=== PATIENT | female | born 2000 ===

== ENCOUNTER 2021-06-23 13:10 | Outpatient (CLI) | payer OTHER | END 2021-06-23 14:25 | disposition home or self-care (01) | LOC: PRENATAL 13:10 | PROVIDERS: ATTEND Obstetrics & Gynecology Maternal & Fetal Medicine | DX: O35.0XX1 Maternal care for (suspected) central nervous system malformation in fetus, fetus 1 (principal); O35.3XX1 Maternal care for (suspected) damage to fetus from viral disease in mother, fetus 1; O98.512 Other viral diseases complicating pregnancy, second trimester; Z36.89 Encounter for other specified antenatal screening; Z3A.22 22 weeks gestation of pregnancy ==

== ENCOUNTER 2021-08-04 08:59 | Outpatient (CLI) | payer OTHER | END 2021-08-04 10:38 | disposition home or self-care (01) | LOC: PRENATAL 08:59 | PROVIDERS: ATTEND Obstetrics & Gynecology Maternal & Fetal Medicine | DX: O26.849 Uterine size-date discrepancy, unspecified trimester (principal); O35.0XX0 Maternal care for (suspected) central nervous system malformation in fetus, not applicable or unspecified ==

== ENCOUNTER 2021-08-30 12:29 | Inpatient (IN) | payer OTHER ==
[~2021-08-30] VITALS: Ht 154.9 cm; Wt 49.9 kg
[2021-08-30] MEDS ORDERED: PRENATAL CAPLE1 EAC1 PO (14:46)
== END 2021-09-02 11:36 | disposition home or self-care (01) | DRG 833 ==
LOC: LDR 12:29 → OB/GYN 08-31 20:10
PROVIDERS: ADMIT Obstetrics & Gynecology; ATTEND Obstetrics & Gynecology
PROC: 4A1HXCZ Monitoring of Products of Conception, Cardiac Rate, External Approach (ICD-10-PCS; principal; 2021-08-30)
PROC: BY4FZZZ Ultrasonography of Third Trimester, Single Fetus (ICD-10-PCS; 2021-08-30)
DX: O60.03 Preterm labor without delivery, third trimester (principal); O26.843 Uterine size-date discrepancy, third trimester; O35.0XX0 Maternal care for (suspected) central nervous system malformation in fetus, not applicable or unspecified; O36.8130 Decreased fetal movements, third trimester, not applicable or unspecified; Z3A.33 33 weeks gestation of pregnancy; Z20.822 Contact with and (suspected) exposure to COVID-19

== ENCOUNTER 2021-10-04 09:02 | Outpatient (CLI) | payer OTHER ==
[~2021-10-04 09:02] MED LIST: PRENATAL CAPLE1 EAC1 PO
== END 2021-10-04 10:27 | disposition home or self-care (01) ==
LOC: OBS/DEL 09:02
PROVIDERS: ATTEND Obstetrics & Gynecology
DX: O26.893 Other specified pregnancy related conditions, third trimester (principal); Z3A.38 38 weeks gestation of pregnancy

== ENCOUNTER 2024-04-22 09:46 | Inpatient (IN) | payer OTHER ==
[2024-04-22] VITALS (9 sets, daily range): BP systolic 110–126; BP diastolic 56–77
[~2024-04-22] VITALS: Ht 157.5 cm; Wt 61.2 kg
[2024-04-22] MEDS ORDERED: MISOPROSTOL 25 MCG/4 ML GEL.W.APPL VAG STA (10:16)
[2024-04-22] MEDS ORDERED: PRENATAL TABLE1 EAC1 PO (10:46)
[2024-04-22 11:04] LABS: PH,URINE 6.5 (5.0-8.0); URINE APPEARANCE Clear; URINE BILIRRUBIN Negative (NEGATIVE); URINE BLOOD Negative; URINE COLOR Yellow; URINE GLUCOSE Negative (NEGATIVE); URINE KETONE Negative (NEGATIVE); URINE LEUKOCYTE Moderate; URINE NITRATE Negative; URINE PROTEIN Trace (NEGATIVE)
[2024-04-22 11:06] LABS: URINE BACTERIA 7648.1 uL (0.0-1933); URINE EPITHELIAL CELLS 48.5 uL (0.0-38.8); URINE RBC 8.8 uL (0.0-20.8); URINE WBC 297.4 uL (0.0-23.2)
[2024-04-22 11:16] LABS: HEMATOCRIT 26.6 % (36.0-45.00); MEAN CELL VOLUME 72.5 fL (80.00-100.00); MEAN CORPUSCULAR HEMOGLOBIN 23.1 pg (27.00-32.0); MEAN CORPUSCULAR HGB CONC 31.9 g/dl (32.0-36.0); PLATELET COUNT 226 K/uL (150-450); RED BLOOD COUNT 3.67 M/uL (4.00-6.00); RED CELL DISTRIBUTION WIDTH 16.5 % (11.5-14.5)
[2024-04-22 11:18] LABS: HEMOGLOBIN 8.5 g/dL (12.0-15.00)
[2024-04-22 11:34] LABS: PARTIAL THROMBOPLASTIN TIME 23.3 SECONDS (22.0-34.0); PROTHROMBIN TIME 10.9 SECONDS (9.0-11.5)
[2024-04-22 11:43] LABS: ALBUMIN 2.7 gm/dL (3.4-5.0); BILIRUBIN TOTAL 0.5 mg/dL (0.3-1.2); CALCIUM 9.3 mg/dL (8.5-10.1); CREATININE SERUM 0.34 mg/dL (0.55-1.02); GFR 240.77; GLOBULINA 4.5 G/DL (2.4-3.5); POTASSIUM 4.73 mEq/L (3.5-5.1); TOTAL PROTEIN 7.2 gm/dL (6.4-8.2)
[2024-04-22 11:56] LABS: URINE CAST 0.45 uL (0.0-1.40)
[2024-04-22 11:58] LABS: URINE MUCUS HEAVY
[2024-04-22] MEDS ORDERED: OXYTOCIN 500 ML IV SCH (18:15)
[2024-04-22] MEDS ORDERED: MORPHINE SULFATE 4 MG/ML CARTRIDGE IV ONE (20:00)
[2024-04-22] MEDS ORDERED: IBUprofen 400 MG TABLET PO PRN (21:00)
[2024-04-22] MEDS ORDERED: OXYTOCIN 10 UNITS/ML VIAL IM STA (21:15)
[2024-04-22] MEDS ORDERED: OXYTOCIN 1,000 ML IV SCH (21:15)
[2024-04-22] MEDS ORDERED: CHLORHEXIDINE GLUCONATE 120 ML BOTTLE TOP SCH (21:15)
[2024-04-22] MEDS ORDERED: ERYTHROMYCIN BASE OPHT 1GM EACH TUBE OP ONE (22:15)
[2024-04-22] MEDS ORDERED: LIDOCAINE HCL 1% 10ML VIAL PERCUT ONE (23:30)
[2024-04-23] VITALS: BP 105/68
[2024-04-23 01:58] LABS: MEAN CELL VOLUME 73.2 fL (80.00-100.00); MEAN CORPUSCULAR HGB CONC 32.2 g/dl (32.0-36.0); PLATELET COUNT 189 K/uL (150-450); RED BLOOD COUNT 3.18 M/uL (4.00-6.00); RED CELL DISTRIBUTION WIDTH 15.5 % (11.5-14.5)
[2024-04-23 02:00] LABS: MEAN CORPUSCULAR HEMOGLOBIN 23.5 pg (27.00-32.0)
[2024-04-23 02:01] LABS: HEMATOCRIT 23.3 % (36.0-45.00); HEMOGLOBIN 7.5 g/dL (12.0-15.00)
[2024-04-23 07:12] LABS: MEAN CELL VOLUME 72.2 fL (80.00-100.00); MEAN CORPUSCULAR HGB CONC 33.5 g/dl (32.0-36.0); PLATELET COUNT 182 K/uL (150-450); RED BLOOD COUNT 2.95 M/uL (4.00-6.00); RED CELL DISTRIBUTION WIDTH 15.8 % (11.5-14.5)
[2024-04-23 07:22] LABS: HEMATOCRIT 21.3 % (36.0-45.00); HEMOGLOBIN 7.1 g/dL (12.0-15.00)
[2024-04-23 08:36] VITALS: BP 110/66
[2024-04-23] MEDS ORDERED: IRON/V.C/V.B12/FOLIC A/VIT. E 1 CAPL CAPLET PO SCH (12:00)
[2024-04-23 16:00] VITALS: BP 112/74
[2024-04-23 20:00] VITALS: BP 103/64
[2024-04-23 21:10] LABS: HEMATOCRIT 30.1 % (36.0-45.00); HEMOGLOBIN 9.9 g/dL (12.0-15.00); MEAN CELL VOLUME 75.6 fL (80.00-100.00); MEAN CORPUSCULAR HEMOGLOBIN 24.8 pg (27.00-32.0); MEAN CORPUSCULAR HGB CONC 32.8 g/dl (32.0-36.0); PLATELET COUNT 185 K/uL (150-450); RED BLOOD COUNT 3.98 M/uL (4.00-6.00); RED CELL DISTRIBUTION WIDTH 16.6 % (11.5-14.5)
[2024-04-24] VITALS: BP 111/76
[2024-04-24 08:00] VITALS: BP 101/68
== END 2024-04-24 16:57 | disposition home or self-care (01) | DRG 807 ==
LOC: OB/GYN 09:46 → LDR 09:46 → OB/GYN 21:05
PROVIDERS: ADMIT Obstetrics & Gynecology; ATTEND Obstetrics & Gynecology
PROC: 10E0XZZ Delivery of Products of Conception, External Approach (ICD-10-PCS; principal; 2024-04-22)
PROC: 0KQM0ZZ Repair Perineum Muscle, Open Approach (ICD-10-PCS; 2024-04-22)
PROC: 4A1HXCZ Monitoring of Products of Conception, Cardiac Rate, External Approach (ICD-10-PCS; 2024-04-22)
PROC: 30233N1 Transfusion of Nonautologous Red Blood Cells into Peripheral Vein, Percutaneous Approach (ICD-10-PCS; 2024-04-23)
DX: O70.1 Second degree perineal laceration during delivery (principal); O99.02 Anemia complicating childbirth; D64.9 Anemia, unspecified; Z37.0 Single live birth; Z3A.39 39 weeks gestation of pregnancy; Z20.822 Contact with and (suspected) exposure to COVID-19